=== PATIENT | female | born 1990 | race Caucasian/White ===

== ENCOUNTER → 2024-11-26 | Outpatient (CLI) | payer BC | END | disposition home or self-care (01) | LOC: US 08:55 | PROVIDERS: ATTEND Obstetrics & Gynecology | DX: Z34.02 Encounter for supervision of normal first pregnancy, second trimester (principal); Z3A.15 15 weeks gestation of pregnancy | CPT/HCPCS: 76805 ==

== ENCOUNTER → 2025-03-18 | Outpatient (CLI) | payer BC | END | disposition home or self-care (01) | LOC: US 09:43 | PROVIDERS: ATTEND Obstetrics & Gynecology | DX: Z34.93 Encounter for supervision of normal pregnancy, unspecified, third trimester (principal); Z3A.32 32 weeks gestation of pregnancy | CPT/HCPCS: 76805 ==